=== PATIENT | female | born 1995 | race Caucasian/White ===

== ENCOUNTER → 2019-10-27 14:31 | Outpatient (CLI) | payer BC, SELFPAY ==
--- NOTE | 2019-10-27 14:37 | US_ITS ---
PROCEDURE: US TRANSVAGINAL CLINICAL INDICATION: US- pelvic pain COMPARISON: No exams were available for comparison FINDINGS: UTERUS: 6cm x 3cmx 3cm with a combined endometrial thickness of 4.9mm LEFT OVARY: [id number] with a volume of 7.1ml. RIGHT OVARY: [id number] with a volume of 5.6ml. There are small nabothian cysts noted. Small follicles are present involving the left ovary the largest at 10 mm. Small right ovarian follicles also noted. There is bilateral ovarian blood flow. No cul-de-sac fluid apparent. IMPRESSION: Negative pelvic ultrasound Dictated by: Jim Lopez MD 10/27/2019 17:54 Jim Lopez MD in [place] 10/27/2019 17:54
== END ==
PROVIDERS: PCP Physician Assistant; Visit Provider Obstetrics & Gynecology
DX: R10.2 Pelvic and perineal pain (principal)
CPT/HCPCS: 76830

== ENCOUNTER → 2019-11-29 11:12 | Outpatient (CLI) | payer BC, SELFPAY ==
[2019-11-29 11:32] LABS: Microscopic, Urine URINE MICROSCOPIC (MICROSCOPIC)
[2019-11-29 11:52] LABS: Basophils # 0.1 K/mm3 (0-0.2); Basophils % 0.7 % (0.1-2.0); Eosinophils # 0.5 K/mm3 (0.0-0.4); Eosinophils % 4.3 % (0.1-12.0); Hematocrit 45.7 % (37.0-47.0); Hemoglobin 14.5 g/dL (12.2-16.2); Lymphocytes # 2.5 K/mm3 (0.7-4.5); Lymphocytes % 20.7 % (10-50); Mean Corpuscular HGB Conc 31.7 g/dL (31.8-35.4); Mean Corpuscular Hemoglobin 27.8 pg (27.0-31.2); Mean Corpuscular Volume 87.5 fl (81-99); Mean Platelet Volume 7.1 fl (7.4-10.4); Monocytes # 0.7 K/mm3 (0.1-1.0); Monocytes % 5.9 % (1.7-9.3); Neutrophils # 8.1 K/mm3 (1.8-7.8); Neutrophils % 68.4 % (37.0-80.0); Platelet Count 312 K/mm3 (142-424); Red Blood Count 5.22 M/mm3 (4.20-5.40); Red Cell Distribution Width 12.9 % (11.5-17.5); White Blood Count 11.9 K/mm3 (4.8-10.8)
[2019-11-29 12:29] LABS: Alanine Aminotransferase 24 U/L (12-78); Albumin Level 4.5 g/dl (3.5-5.0); Albumin/Globulin Ratio 1.4 (1.1-1.8); Alkaline Phosphatase 92 U/L (38-126); Anion Gap 14.4 mEq/L (5-15); Aspartate Amino Transferase 27 U/L (14-36); Bilirubin,Total 0.4 mg/dl (0.2-1.3); Blood Urea Nitrogen 16 mg/dl (7-17); Calcium 9.8 mg/dl (8.4-10.2); Carbon Dioxide 26 mmol/L (22.0-30.0); Chloride 103 mmol/L (98-107); Estimated Glomerular Filt Rate 104 ml/min (>60); GFR (African American) 125 ML/MIN (>60); Globulin 3.2 g/dL (1.3-3.2); Glucose 94 mg/dl (74-100); Potassium 4.4 mmoL/L (3.5-5.1); Sodium 139 mmol/L (136-145); Total Protein,Serum 7.7 g/dl (6.3-8.2)
[2019-11-29 12:52] LABS: HCG Qualitative, Serum Negative (Negative)
[2019-11-29 13:24] LABS: Coronavirus 19 IgG Antibody Negative (Negative); Coronavirus 19 IgM Antibody Negative (Negative)
[2019-11-29 15:22] LABS: Appearance,Urine TURBID (Clear); Bilirubin,Urine Negative (Negative); Blood, Urine 3+ (Negative); Color,Urine YELLOW (Yellow); Glucose,Urine (UA) Negative (Negative); Ketones,Urine Negative (Negative); Leukocyte Esterase,Urine 2+ (Negative); Nitrate,Urine Negative (Negative); Protein,Urine TRACE (Negative); Specific Gravity, Urine 1.025 (1.005-1.030); Urobilinogen,Urine 0.2 EU/dl (0.2)
[2019-11-29 15:43] LABS: Amphetamine/Metha Screen,Urine Negative ng/ml (<1000)
[2019-11-29 15:45] LABS: Barbiturates Screen,Urine Negative ng/ml (<200)
[2019-11-29 15:46] LABS: Benzodiazepines Screen,Urine Negative ng/ml (<200)
[2019-11-29 15:47] LABS: Cannabinoid Screen,Urine Negative ng/ml (<50); Cocaine Screen,Urine Negative ng/ml (<300)
[2019-11-29 15:48] LABS: Methadone Screen,Urine Negative ng/ml (<300); Opiate Screen,Urine Negative ng/ml (<300)
[2019-11-29 15:49] LABS: Phencyclidine Screen,Urine Negative ng/ml (<25)
[2019-11-29 16:43] LABS: Bacteria,Urine 2+ /lpf; WBC,Urine TNTC #/hpf (0-3)
== END ==
PROVIDERS: Visit Provider Obstetrics & Gynecology
DX: Z01.818 Encounter for other preprocedural examination (principal); R10.2 Pelvic and perineal pain
CPT/HCPCS: 36415; 80053; 80305; 81001; 84703; 85025; 86328; 87086; 87088; 87186

== ENCOUNTER 2019-12-01 07:04 | Day surgery (SDC) | payer BC, SELFPAY ==
[2019-11-29 15:56] VITALS: BMI 32.9
[2019-12-01] VITALS (12 sets, daily range): BP systolic 110–144; BP diastolic 61–80; PULSE 78–107; RESP 12–18; TEMP 36.4–37; O2SAT 92–98
--- NOTE | 2019-12-01 10:51 | HMH.ANESCL ---
[facility] Anesthesia Checklist - Structural Data Admitted From: Home Planned Operative Procedure/s: dx lap Consent for Planned Operative Procedure(s) Verified: Yes - Additional verifications Anesthesia Reactions: Yes (N/V) Hx Blood Transfusions: No - Airway Assessment C-Spine Mobility Assessed: Yes TMJ Mobility Assessed: Yes Dentition: Good Dentition - Neurological Assessment Level of Consciousness: Awake, Alert, Appropriate - Anesthesia Plan Anesthesia Risk discussed: Yes Anesthesia Plan: Verified ASA Class: II Anesthesia Type: General [facility] History I have reviewed the patient's past medical history: Yes Medical History: Denies:: Cancer, Diabetes Mellitus Type 1, Diabetes Mellitus Type 2, MRSA, Seizures *Have you ever received a pneumonia vaccine?: No *Have you received a flu vaccine this season?: No Anesthesia experience/problems:: none Other Surgeries: Yes: No Previous Surgery Amputation: No Fractures: No - *Social History Smoking Status: Never smoker Alcohol Intake: never Substance Use Type: denies use *Occupational Status:: employed Housing: house *Travel in the last 8 weeks: None Family Hx:: Cancer
--- NOTE | 2019-12-01 11:35 | P.PN_ITS ---
[facility] Anesthesia Record Part I Intake, IV Amount: 1,500 Estimated blood loss (mL): 0 Urine output (mL): 0 Blood Pressure: 130/78 SaO2: 93 Pulse Rate: 96 Respiratory Rate: 14 Temperature: 97.6 F Patient is:: Awake, Stable Stable to PACU at:: 11:30
--- NOTE | 2019-12-01 11:35 | HMH.OPNOTE ---
Date of procedure: 12/01/19 Pre-op Diagnosis:: pelvic pain infertility Post-op Diagnosis:: same Procedure performed:: diagnostic laparoscopy chromotubation of fallopian tubes Surgeon:: Laureen Plascencia MD PRINCIPAL HARDWARE ARCHITECT:: Nathaniel Truong Anesthesia: GETA Estimated blood loss (mL): 5 Operative findings:: normal pelvis no endometriosis or adhesions patent fallopian tubes bilaterally Operative note:: The patient was taken to the operating room and general anesthesia was administered. She was prepped/draped in lithotomy position. A uterine manipulator was placed without difficulty. Gloves were changed and attention was turned to the abdomen. A 5mm skin incision was made in the umbilical fold and the Verees needle was inserted through the peritoneum and into the abdominal cavity in standard fashion. The abdomen was insufflated with CO2 gas. A 5mm non-bladed trocar was inserted directly into the abdominal cavity and appropriate placement was confirmed with the laparoscope. No intra-abdominal injuries occurred during entry into the abdominal cavity, as confirmed visually with the laparoscope. The patient was placed in trendelenburg and a 8mm skin incision was made 2cm above the pubic symphysis. A 8mm non-bladed trocar was inserted under direct visualization, without complication. The uterus was elevated out of the pelvis in order to better visualize the anatomy. A survey of the pelvis and abdomen revealed normal anatomy. No endometriosis or adhesions were noted anywhere. A dilute solution of methylene blue was injected through the uterine manipulator and dye was observed freely flowing through both fallopian tubes. All trocars were then removed. The uterine manipulator was removed. The abdomen was then evacuated of gas and all trocars removed. The skin incisions were closed with 4-0 monocryl. The patient tolerated the procedure well. Sponge/lap/needle/instrument counts were correct at conclusion of procedure. She was taken out of lithotomy position and awakened from anesthesia, and was taken to the recovery room in stable condition. Condition: stable Disposition: PACU Specimens:: none Complications:: none
--- NOTE | 2019-12-01 13:26 | PC.NURSE ---
1202-detailed report called to EDUARDA Alvaerz 1204-pt transported to post op via stretcher w/kevin rails up and left in care of EDUARDA Alvarez with bed locked in lowest position, vss, pt stable
--- NOTE | 2019-12-02 16:30 | HMH.ANESII ---
[facility] Anesthesia Record Part II Discharge Time: 12:00 Destination: Surgical Day Care (OP Surgery) PACU nurse assessment reviewed?: Yes Patient Condition:: Good Anesthesia Complications:: None Swallowing reflex intact?: Yes Cyanosis?: No Blood Pressure: 122/68 Pulse Rate: 86 Temperature: 97.9 F Mental Status: Alert & Oriented Pain level:: 5 Nausea and/or vomitting:: None Intake, IV Amount: 0
[2019-12-02 16:31] VITALS: BP 122/68; PULSE 86; TEMP 36.6
== END 2019-12-01 12:50 | disposition home or self-care (01) ==
PROVIDERS: PCP Physician Assistant; Visit Provider Obstetrics & Gynecology
PROC: (CPT 49320; principal; 2019-12-01 09:00)
DX: Z30.2 Encounter for sterilization; N92.0 Excessive and frequent menstruation with regular cycle; R10.2 Pelvic and perineal pain; Z80.9 Family history of malignant neoplasm, unspecified; Z84.2 Family history of other diseases of the genitourinary system
CPT/HCPCS: 49320; 58350; 96374; J2405; J2710

== ENCOUNTER 2024-02-17 11:52 | Emergency (ER) | payer BC, SELFPAY ==
[2024-02-17 11:54] VITALS: BP 149/91; PULSE 109; RESP 20; TEMP 36.8; O2SAT 100; BMI 35.1
[2024-02-17 12:10] LABS: Appearance,Urine TURBID (Clear); Bilirubin,Urine Negative (Negative); Blood, Urine 3+ (Negative); Color,Urine RED (Yellow); Glucose,Urine (UA) Negative (Negative); Ketones,Urine TRACE (Negative); Leukocyte Esterase,Urine Negative (Negative); Microscopic, Urine URINE MICROSCOPIC (MICROSCOPIC); Nitrate,Urine Negative (Negative); PH,Urine 5.5 (5.0-8.5); Protein,Urine TRACE (Negative); Urobilinogen,Urine 0.2 EU/dl (0.2)
--- NOTE | 2024-02-17 12:10 | ED_ITS ---
<Statement entered by Ramy Cason MD - 02/17/24 16:12> I was consulted by the KG, and we discussed the complexity of the problems being addressed. I approved the treatment and management plan for this patient's care in the emergency department, thus performing a substantive portion of the medical decision making. Ramy Cason MD Discharge Plan Disposition Patient Disposition: Home, Self-Care Condition: Good Prescriptions Prescriptions: No Action omeprazole 40 mg capsule,delayed release(DR/EC) 40 mg PO DAILY hydrocodone-acetaminophen [[place]] 5-325 mg tablet 1 tab PO Q6H PRN (Reason: pain) Qty: 20 0RF ciprofloxacin HCl 250 mg tablet 250 mg PO BID 3 Days Qty: 6 0RF tranexamic acid 650 MG tablet 650 mg PO BID Rx Instructions: Only take during mens. cycle cyanocobalamin (vitamin B-12) 2,500 MCG tablet 2,500 mcg PO DAILY Referrals Follow up/Referrals: Leonor Jansen DO [Staff Physician] - See instructions Lanette Garza PA [Primary Care Provider] - See instructions Activity Restrictions/Add. Instructions Additional Instructions/Restrictions: You were seen for a miscarriage. Please follow up with OB within 48 hours for repeat labs and ultrasound. Return to the ER for increased pain or bleeding. Clinical Impressions Clinical Impression: Miscarriage Print Language Print Language: Setswana Discharge ED Provider: Ramy Cason General Adult HPI General Chief complaint: Vaginal Bleeding Stated complaint: 7 wks antepartum, passed clots, cramps Time Seen by Provider: 02/17/24 12:01 Mode of Arrival: Ambulatory Source of Information: Patient Limitations: No Limitations Description of Symptoms (Recalled from ER Triage Doc. by RN): pt is approx 7 weeks , sees dr arana at [facility], this morning at 0930 began cramping passing decent size clots, had ultasound and labs done at ob office one week ago History of Present Illness HPI narrative: Patient presents complaining of vaginal bleeding. She is currently 7 weeks gestation. She has had an IUP confirmed on transvaginal ultrasound with her OB. She is followed by Dr. Arana in [facility]. This is her first . She does have some lower abdominal cramping that feels like menstrual cramps. She denies any fevers. Denies any urinary symptoms. 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 She reports that at first her bleeding was light and then developed clots. Bleeding started at 0930. complaint: -vaginalbleeding Onset (ago): hour(s) Location: genitals Radiation: non-radiation Severity: moderate Quality: other (crampiong) Consistency: constant Relieving factors: none Exacerbating factors: none Associated symptoms: negative fever/chills Treatments prior to arrival: none Related Data Home Medications ?Medication ?Instructions ?Recorded ?Confirmed omeprazole 40 mg capsule,delayed 40 mg PO DAILY ACID REFLUX 10/25/19 12/01/19 release cyanocobalamin (vitamin B-12) 2,500 mcg PO DAILY Supplement 12/01/19 12/01/19 2,500 mcg tablet tranexamic acid 650 mg tablet 650 mg PO BID * 12/01/19 12/01/19 Previous Rx's ?Medication ?Instructions ?Recorded hydrocodone 5 mg-acetaminophen 325 1 tab PO Q6H PRN pain #20 tabs 12/01/19 mg tablet ([place]) ciprofloxacin HCl 250 mg tablet 250 mg PO BID 3 days #6 tabs 12/02/19 Allergies Allergy/AdvReac Type Severity Reaction Status Date / Time No Known Allergies Allergy Verified 12/01/19 07:54 [facility] Disclaimer: The information contained in this section may have been updated after the patient was seen, as this information can be updated by other users. Social History Smoking Status: Never smoker alcohol intake: never substance use type: denies use current occupational status: employed Travel in the last 8 weeks: None housing: house current occupational exposures/hazards: No caffeine: Yes Have you lived/traveled outside [place] in past 30 days?: No Contact w/someone who lives/traveled outside US past 30 days?: No Exposure to someone with infectious disease in past 14 days?: No Do you have a fever (greater than 100.4 F or 38 C)?: No Have you tested positive for COVID-19: No Exposed to someone with COVID-19 in past 14 days?: No Do you have a sore throat?: No Do you have a cough?: No Do you have any weakness?: No Do you have any diarrhea?: No Are you experiencing any unusual bleeding?: No Do you have any muscle aches/pain?: No Do you have any abdominal pain?: No Are you experiencing loss of taste or smell?: No Other Medical History Have you received the Flu Vaccine for this season: No Have you received the Pneumonia Vaccine: No ROS Obtained: Yes Systems reviewed as appropriate & no additional complaints except as documented Physical Exam General General appearance: alert and in no apparent distress Head Head exam: atraumatic and normocephalic Eye Eye exam: Present normal appearance and EOMI Chest Chest inspection: Present symmetric chest wall rise Respiratory Respiratory exam: Present normal lung sounds bilaterally; Absent wheezes or stridor Cardiovascular Cardiovascular exam: Present regular rate and normal rhythm; Absent systolic murmur Abdominal Exam Abdominal exam: Present soft; Absent distention, tenderness or guarding Extremities Exam Extremities exam: Present full ROM Neurological Exam Neurological exam: Present alert and oriented X3 Psychiatric Psychiatric exam: Present normal affect and normal mood Skin Skin exam: Present warm, dry and intact Medical Decision Making Medical Records Screening: Per USPSTF and CDC recommendations, given the prevalence of disease in our region, it is our hospital?s policy to screen for HIV and viral Hepatitis for all patients aged 18 and over and those with ongoing risk factors. Luis Inquiry Pt receiving controlled substance: No Vital Signs: 02/17/24 11:54 02/17/24 12:31 02/17/24 14:57 Temperature 98.2 F 98.2 F Temperature Source Oral Pulse Rate 91 H 80 Pulse Rate [Left Radial] 109 H Respiratory Rate 20 20 Blood Pressure 107/73 L 108/79 L Blood Pressure [Right Arm] 149/91 H Blood Pressure Mean [Right Arm] 110 02 Sat by Pulse Oximetry 100 98 Oxygen Delivery Method Room Air Room Air Room Air Lab Data Lab Results 02/17/24 12:00: Urine Color Red, Urine Appearance Turbid, Urine pH 5.5, Ur Specific [place] 1.020, Urine Protein Trace, Urine Glucose (UA) Negative, Urine Ketones Trace, Urine Blood 3+ A, Urine Nitrate Negative, Urine Bilirubin Negative, Urine Urobilinogen 0.2, Ur Leukocyte Esterase Negative, Urine RBC Tntc, Urine WBC None, Ur Squamous Epith Cells Occasional, Urine Bacteria Trace 02/17/24 12:10: WBC 13.1 H, RBC 4.84, Hgb 13.7, Hct 40.2, MCV 83.1, MCH 28.3, MCHC 34.1, RDW 12.5, Plt Count 347, MPV 9.0, Neut % (Auto) 71.4, Lymph % (Auto) 21.9, Eagle % (Auto) 4.4, Eos % (Auto) 1.5, Baso % (Auto) 0.4, Neut # (Auto) 9.3 H, Lymph # (Auto) 2.9, Eagle # (Auto) 0.6, Eos # (Auto) 0.2, Baso # (Auto) 0.1, Sodium 138, Potassium 3.7, Chloride 102, Carbon Dioxide 26, Anion Gap 13.7, BUN 14, Creatinine 0.70, Estimated Creat Clear 161, Estimated GFR 100, Est GFR ( Amer) 121, Glucose 99, Calcium 9.9, Total Bilirubin 0.7, AST 30, ALT 22, Alkaline Phosphatase 59, Total Protein 8.0, Albumin 5.0, Globulin 3.0, Albumin/Globulin Ratio 1.7, HCG, Quant 2270 H 02/17/24 12:13: Blood Type A Negative 02/17/24 12:10 02/17/24 12:10 Orders (Tests/Meds): ED MEDICATIONS Discontinued Medications Generic Name Dose Route Start Last Admin Trade Name Freq PRN Reason Stop Dose Admin Rho Immune Globulin 300 mcg 02/17/24 13:07 02/17/24 13:35 Rho(D) Immune Globulin 1,500 Unit (300mcg) Syringe IM 02/17/24 13:08 300 mcg ONCE ONE Administration ORDERS Category Date Time Status ABO/RH Type Stat BBK 02/17/24 12:13 Completed CBC w/Auto Diff [Complete Blood Count Auto Diff] Stat Lab 02/17/24 12:10 Completed CMP [Comprehensive Metabolic Panel] Stat Lab 02/17/24 12:10 Completed HCG,Quantitative Stat Lab 02/17/24 12:10 Completed Urinalysis and Microscopic Stat Lab 02/17/24 12:00 Completed US OB transvaginal Stat Ultrasound 02/17/24 12:[address] Data ED CT Reviewed: Yes I have viewed the radiologist's interpretation US Data US Images: Pelvis ED US Reviewed: Yes I have viewed radiologist's interpretation Findings Narrative: 1. No evidence of an intrauterine gestation. Findings may be consistent with early , however ectopic or miscarriage cannot be excluded. 2. No evidence of ovarian torsion. 3. No definite adnexal masses. 4. Heterogeneous density and fluid noted within the cervical canal measuring 1.5 x 0.9 x 1.1 cm. Medical Decision Narrative: In summary patient is a 28-year-old who presents the emergency department for evaluation of vaginal bleeding. Patient is tachycardic and upon arrival, afebrile. Unremarkable exam. Differential diagnosis includes threatened miscarriage, miscarriage, anemia. Initial workup will be conducted with hematologic labs, Rh status, ultrasound. Initial workup reviewed by me patient is Rh-, transvaginal ultrasound reveals density in cervical canal. Upon repeat evaluation patient is Rh-, given RhoGAM. Discussed with Dr. Ward who agrees this patient is appropriate for 48-hour follow-up with either herself or her own PHARMACY TECHNOLOGY INSTRUCTOR. Given this patient is appropriate for discharge with strict follow-up instructions and return precautions. Critical Care Critical Care Time Critical Care Time: No
[2024-02-17 12:15] LABS: Basophils # 0.1 K/mm3 (0-0.2); Basophils % 0.4 % (0.1-2.0); Eosinophils # 0.2 K/mm3 (0.0-0.4); Eosinophils % 1.5 % (0.1-12.0); Hematocrit 40.2 % (37.0-47.0); Hemoglobin 13.7 g/dL (12.2-16.2); Lymphocytes # 2.9 K/mm3 (0.7-4.5); Lymphocytes % 21.9 % (10-50); Mean Corpuscular HGB Conc 34.1 g/dL (31.8-35.4); Mean Corpuscular Hemoglobin 28.3 pg (27.0-31.2); Mean Corpuscular Volume 83.1 fl (81-99); Monocytes # 0.6 K/mm3 (0.1-1.0); Monocytes % 4.4 % (1.7-9.3); Neutrophils # 9.3 K/mm3 (1.8-7.8); Neutrophils % 71.4 % (37.0-80.0); Platelet Count 347 K/mm3 (142-424); Red Blood Count 4.84 M/mm3 (4.20-5.40); Red Cell Distribution Width 12.5 % (11.5-17.5); White Blood Count 13.1 K/mm3 (4.8-10.8)
--- NOTE | 2024-02-17 12:15 | PC.NURSE ---
radiology notified of us
[2024-02-17 12:16] LABS: Bacteria,Urine Trace /lpf; RBC,Urine TNTC #/hpf (0-3); Squamous Epithelial Cell,Urine Occasional #/hpf (0-5)
--- NOTE | 2024-02-17 12:24 | US_ITS ---
PROCEDURE INFORMATION: Exam: US , Transvaginal and US Duplex Artery and Vein, Ovaries, Complete Exam date and time: 02/17/2024 12:41 PM Age: 28 years old Clinical indication: Lmp or gestational age (in weeks): 8w3d; Other: Bleeding early preg; ; Additional info: Miscarriage/ R/O ectopic LABS AND CLINICAL REPORTS: Last menstrual period start date: 12/20/2023 Gestational age (Established): 8 w 3 d Estimated due date (Established): 09/25/2024 TECHNIQUE: Imaging protocol: Real-time transvaginal obstetrical ultrasound of the maternal pelvis and a first trimester with image documentation. Transvaginal imaging was used for better evaluation of the fetus, adnexa, and/or cervix. Real-time duplex ultrasound scan of the arterial and venous flow of the ovaries with B-mode, color Doppler flow and spectral waveform analysis, Complete Duplex. Duplex exam was performed to evaluate for torsion and other vascular conditions. Total images: 29 COMPARISON: US TRANSVAGINAL 10/27/2019 2:47 PM FINDINGS: GESTATION: Gestation: No evidence of an intrauterine gestation. MATERNAL: Cervix: Heterogeneous density and fluid noted within the cervical canal measuring 1.5 x 0.9 x 1.1 cm. Right ovary/adnexa: Right ovary measures 2.66 cm x 2.2 cm x 1.87 cm. Right ovarian volume is 5.73 mL. Blood flow is demonstrated to the right ovary. Left ovary/adnexa: Left ovary measures 2.64 cm x 1.39 cm x 1.84 cm. Left ovarian volume is 3.54 mL. Blood flow is demonstrated to the left ovary. Intraperitoneal space: No intraperitoneal free fluid. IMPRESSION: 1. No evidence of an intrauterine gestation. Findings may be consistent with early , however ectopic or miscarriage cannot be excluded. 2. No evidence of ovarian torsion. 3. No definite adnexal masses. 4. Heterogeneous density and fluid noted within the cervical canal measuring 1.5 x 0.9 x 1.1 cm.
[2024-02-17 12:25] LABS: Alanine Aminotransferase 22 U/L (12-78); Albumin/Globulin Ratio 1.7 (1.1-1.8); Alkaline Phosphatase 59 U/L (38-126); Anion Gap 13.7 mEq/L (5-15); Aspartate Amino Transferase 30 U/L (14-36); Bilirubin,Total 0.7 mg/dl (0.2-1.3); Blood Urea Nitrogen 14 mg/dl (7-17); Calcium 9.9 mg/dl (8.4-10.2); Carbon Dioxide 26 mmol/L (22.0-30.0); Chloride 102 mmol/L (98-107); Creatinine Clearance Estimated 161 mL/min (50-200); Estimated Glomerular Filt Rate 100 ml/min (>60); GFR (African American) 121 ML/MIN (>60); Glucose 99 mg/dl (74-100); Potassium 3.7 mmoL/L (3.5-5.1); Sodium 138 mmol/L (136-145)
[2024-02-17 12:31] VITALS: BP 107/73; PULSE 91; O2SAT 98
[2024-02-17 12:42] LABS: HCG,Quantitative 2270 mIU/ml (0-5.42)
--- NOTE | 2024-02-17 12:49 | PC.NURSE ---
transported to US via wheelchair and road grader
--- NOTE | 2024-02-17 12:50 | PC.NURSE ---
PT TO US
[2024-02-17] MEDS: RHO(D) IMMUNE GLOBULIN 1,500 UNIT (300MCG) SYRINGE 300 MCG IM (13:35)
--- NOTE | 2024-02-17 14:40 | PC.NURSE ---
BILL RINCON SPEAKING WITH OB GUIDEMAN
[2024-02-17 14:57] VITALS: BP 108/79; PULSE 80; RESP 20; TEMP 36.8; O2SAT 98
== END 2024-02-17 14:58 | disposition home or self-care (01) ==
PROVIDERS: Physician Assistant; Emergency Provider Emergency Medicine; PCP Physician Assistant
DX: O03.9 Complete or unspecified spontaneous abortion without complication (principal); R10.30 Lower abdominal pain, unspecified; O26.859 Spotting complicating pregnancy, unspecified trimester
CPT/HCPCS: 76817; 80053; 81001; 84702; 85025; 86900; 86901; 96372; 99283; J2790